=== PATIENT | male | born 1965 | race Hispanic/Latino ===

== ENCOUNTER 2016-09-21 16:25 | Emergency (ER) | payer OTHER ==
[2016-09-21 17:51] LABS: Basophils % (Auto) 0.7 % (0.0-1.8); Eosinophils % (Auto) 1.1 % (0.0-4.3); Hematocrit 40.2 % (35.5-45.6); Hemoglobin 13.4 gm/dl (11.8-15.2); Mean Corpuscular HGB Conc 33 % (32-34); Mean Corpuscular Hemoglobin 30 pg (28-32); Mean Corpuscular Volume 89 fl (84-94); Platelet Count 179 K/mm3 (140-440); Red Blood Count 4.51 M/mm3 (3.65-5.03); Red Cell Distribution Width 13.3 % (13.2-15.2)
--- NOTE | 2016-09-21 18:00 | Cat Scan Report ---
FINAL REPORT EXAM: CT CERVICAL SPINE WO CON HISTORY: hanging TECHNIQUE: Noncontrast serial axial images through the cervical spine with coronal and sagittal reconstruction. PRIORS: None. FINDINGS: No gross abnormality is seen in the visualized portion of the brain. Mastoid air cells are well aerated. Prevertebral soft tissues appear within normal limits. Visualized portion of the lung apices are clear. No acute fracture or anterolisthesis is identified. Degenerative changes are noted at multiple levels. Subtle lucent foci are seen in the C4 and C5 vertebral bodies. IMPRESSION: 1. No acute fracture or anterolisthesis is identified. 2. Multilevel degenerative change is noted. 3. Subtle lucent foci are seen in the C4 and C5 vertebral bodies. This is a nonspecific finding. The possibility of metastatic disease or myeloma is not excluded in this age group. There are currently no studies available for direct comparison.
[2016-09-21 18:06] LABS: Anion Gap 18 mmol/L; BUN/Creatinine Ratio 22.85; Blood Urea Nitrogen 16 mg/dL (9-20); Calcium 8.9 mg/dL (8.4-10.2); Carbon Dioxide 24 mmol/L (22-30); Chloride 101.3 mmol/L (98-107); Glucose 124 mg/dL (75-100); Potassium 4.4 mmol/L (3.6-5.0); Sodium 139 mmol/L (137-145)
[2016-09-21 19:27] VITALS: BP 108/69
[2016-09-21 19:30] LABS: Urine Drugs of Abuse Note Disclamer
--- NOTE | 2016-09-21 19:41 | Emergency Department Report ---
ED General Adult HPI - General Chief complaint: Psych Stated complaint: SUICIDE ATTEMPT Time Seen by Provider: 09/21/16 16:55 Source: patient, EMS Mode of arrival: Stretcher Limitations: No Limitations - History of Present Illness Initial comments: The patient was brought to this facility in cervical mobilization after an attempted pain. The patient tells me that he tied a knot in a sheet and put it around his neck and attempted to jump off a second floor. He states he did not lose consciousness and he was not "dangling". Remarkably he doesn't complain of any significant neck pain at all. Chief complaint on arrival is that he is hungry. He states that he is compliant with his psychiatric medication. He has a history of schizophrenia. He states that he tried to kill himself. He denies any weakness or numbness in his extremities. This patient is a federal prisoner of 3-4 months he tells me. The longterm has sent him for medical clearance. The officers confirm for me that they have ample resources to place this patient on suicide watch as well as psychiatric care in the longterm. He is basically here for cervical spine x-rays. -: Sudden, minutes(s) Location: neck (min) Radiation: non-radiation (minimal) Severity scale (0 -10): 0 Quality: aching Consistency: intermittent Improves with: none Worsens with: none Associated Symptoms: denies other symptoms, other (other than psychiatric) - Related Data Home Medications Medication Instructions Recorded Confirmed Last Taken No Known Home Medications [No 08/20/15 08/25/15 Unknown Reported Home Medications] Allergies Allergy/AdvReac Type Severity Reaction Status Date / Time No Known Allergies Allergy Unverified 08/17/15 20:59 ED Review of Systems ROS: Stated complaint: SUICIDE ATTEMPT Other details as noted in HPI Constitutional: denies: chills, fever Eyes: denies: eye pain, eye discharge, vision change ENT: denies: ear pain, throat pain Respiratory: denies: cough, shortness of breath, wheezing Cardiovascular: denies: chest pain, palpitations Endocrine: no symptoms reported Gastrointestinal: denies: abdominal pain, nausea, diarrhea Genitourinary: denies: urgency, dysuria Musculoskeletal: denies: back pain, joint swelling, arthralgia Skin: denies: rash, lesions Neurological: denies: headache, weakness, paresthesias Psychiatric: depression, suicidal thoughts. denies: anxiety Hematological/Lymphatic: denies: easy bleeding, easy bruising ED Past Medical Hx - Past Medical History Hx Psychiatric Treatment: Yes (SCHIZOPHRENIA, BIPLOAR, DEPRESSION) - Surgical History Past Surgical History?: No - Social History Smoking Status: Unknown if ever smoked - Medications Home Medications: Home Medications Medication Instructions Recorded Confirmed Last Taken Type No Known Home Medications [No 08/20/15 08/25/15 Unknown History Reported Home Medications] ED Physical Exam - General Limitations: No Limitations General appearance: alert, in no apparent distress - Head Head exam: Present: atraumatic, normocephalic - Eye Eye exam: Present: normal appearance, PERRL, EOMI. Absent: scleral icterus - ENT ENT exam: Present: normal exam, mucous membranes moist - Neck Neck exam: Present: normal inspection. Absent: tenderness - Respiratory Respiratory exam: Present: normal lung sounds bilaterally. Absent: respiratory distress - Cardiovascular Cardiovascular Exam: Present: regular rate, normal rhythm. Absent: systolic murmur, diastolic murmur, rubs, gallop - GI/Abdominal GI/Abdominal exam: Present: soft, normal bowel sounds. Absent: distended, tenderness, guarding, rebound, rigid - Rectal Rectal exam: Present: deferred - Extremities Exam Extremities exam: Present: normal inspection - Back Exam Back exam: Present: normal inspection - Neurological Exam Neurological exam: Present: alert, oriented X3, CN II-XII intact, reflexes normal. Absent: motor sensory deficit - Psychiatric Psychiatric exam: Present: flat affect, other (somewhat bizarre and inappropriate but officers state "we know him and this is normal".) - Skin Skin exam: Present: warm, dry, intact, normal color. Absent: rash ED Course Vital Signs 09/21/16 09/21/16 09/21/16 16:42 16:50 16:55 Temperature 97.7 F Pulse Rate 61 Respiratory 14 14 Rate Blood Pressure 100/63 Blood Pressure 100/63 [Right] O2 Sat by Pulse 100 100 100 Oximetry 09/21/16 09/21/16 09/21/16 17:00 17:11 17:21 Temperature Pulse Rate 62 64 57 L Respiratory 20 14 15 Rate Blood Pressure 108/76 108/76 108/76 Blood Pressure [Right] O2 Sat by Pulse 91 99 99 Oximetry 09/21/16 19:15 Temperature Pulse Rate Respiratory Rate Blood Pressure 108/69 Blood Pressure [Right] O2 Sat by Pulse 91 Oximetry - Reevaluation(s) Reevaluation #1: On reexamination the patient is neurologically intact. His C-spine CT did not show any traumatic injury. He does have some incidental lucencies which will be referred to the longterm for further evaluation as appropriate. He is given Geodon and Ativan. He is discharged to longterm medical services on suicide watch. 09/21/16 19:42 ED Medical Decision Making - Lab Data Result diagrams: 09/21/16 17:27 09/21/16 17:27 Laboratory Results - last 24 hr 09/21/16 02 17:27 17:27 WBC 8.0 RBC 4.51 Hgb 13.4 Hct 40.2 MCV 89 MCH 30 MCHC 33 RDW 13.3 Plt Count 179 Lymph % (Auto) 14.8 [place] % (Auto) 5.5 Eos % (Auto) 1.1 Baso % (Auto) 0.7 Lymph # 1.2 [place] # 0.4 Eos # 0.1 Baso # 0.1 Seg Neutrophils % 77.9 H Seg Neutrophils # 6.2 Sodium 139 Potassium 4.4 Chloride 101.3 Carbon Dioxide 24 Anion Gap 18 BUN 16 Creatinine 0.7 L Estimated GFR > 60 BUN/Creatinine Ratio 22.85 Glucose 124 H Calcium 8.9 Critical care attestation.: If time is entered above; I have spent that time in minutes in the direct care of this critically ill patient, excluding procedure time. ED Disposition Clinical Impression: Cervical strain Qualifiers: Encounter type: initial encounter Qualified Code(s): S16.1XXA - Strain of muscle, fascia and tendon at neck level, initial encounter Suicide gesture Qualifiers: Encounter type: initial encounter Qualified Code(s): X83.8XXA - Intentional self-harm by other specified means, initial encounter Schizophrenia Qualifiers: Schizophrenia type: unspecified Qualified Code(s): F20.9 - Schizophrenia, unspecified Disposition: DISCHARGED TO HOME OR SELFCARE Is pt being admited?: No Does the pt Need Aspirin: No Condition: Stable Additional Instructions: The patient will need psychiatric care and suicidal watch. He did have some incidental lucencies on his cervical spine CT but no injury per the radiologist. See report. Return any neurological change or complaint of weakness or numbness in the extremities. Even in the presence of a normal cervical spine x-ray a patient with arthritic changes may develop late signs of injury to the spine. In this case an MRI would be needed. Referrals: PRIMARY CARE, [Primary Care Provider] - 3-5 Days Time of Disposition: 19:44
[2016-09-21] MEDS: GEODON PO ONE (19:45)
[2016-09-21] MEDS: ATIVAN PO ONE (19:45)
[2016-09-21 19:53] LABS: Bilirubin,Urine NEG (Negative); Blood,Urine NEG (Negative); Ketones,Urine NEG (Negative); Leukocyte Esterase,Urine NEG (Negative); Mucus,Urine FEW /HPF; Nitrite,Urine NEG (Negative); Protein,Urine <15 mg/dL mg/dL (Negative); Urobilinogen,Urine < 2.0 mg/dL (<2.0)
== END 2016-09-21 19:59 | disposition home or self-care (01) ==
LOC: EEVIPCON 16:25 → ED 16:25
DX: T14.91 Suicide attempt (principal); S16.1XXA Strain of muscle, fascia and tendon at neck level, initial encounter; F20.9 Schizophrenia, unspecified; F31.9 Bipolar disorder, unspecified; X83.8XXA Intentional self-harm by other specified means, initial encounter; Y93.9 Activity, unspecified; Y92.89 Other specified places as the place of occurrence of the external cause; Y99.9 Unspecified external cause status
CPT/HCPCS: 36415; 72125; 80048; 80307; 81001; 85025; 99284

== ENCOUNTER 2017-03-20 14:24 | Emergency (ER) | payer SELFPAY | END 2017-03-20 16:15 | disposition left against medical advice (07) | LOC: ED 14:24 | DX: R10.9 Unspecified abdominal pain (principal); Z53.21 Procedure and treatment not carried out due to patient leaving prior to being seen by health care provider ==

== ENCOUNTER 2017-03-20 22:17 | Emergency (ER) | payer OTHER ==
[2017-03-20 23:33] VITALS: BP 125/90
[2017-03-21 00:02] LABS: Basophils % (Auto) 0.6 % (0.0-1.8); Eosinophils % (Auto) 2.1 % (0.0-4.3); Hematocrit 42.3 % (35.5-45.6); Hemoglobin 14.3 gm/dl (11.8-15.2); Mean Corpuscular HGB Conc 34 % (32-34); Mean Corpuscular Hemoglobin 28 pg (28-32); Mean Corpuscular Volume 83 fl (84-94); Platelet Count 291 K/mm3 (140-440); Red Cell Distribution Width 14.7 % (13.2-15.2); White Blood Count 10.6 K/mm3 (4.5-11.0)
[2017-03-21 00:15] LABS: Anion Gap 19 mmol/L; Blood Urea Nitrogen 7 mg/dL (9-20); Calcium 9.7 mg/dL (8.4-10.2); Carbon Dioxide 24 mmol/L (22-30); Chloride 99.2 mmol/L (98-107); Glucose 89 mg/dL (75-100); Potassium 4.5 mmol/L (3.6-5.0); Sodium 138 mmol/L (137-145)
== END 2017-03-21 04:30 | disposition left against medical advice (07) ==
LOC: ED 22:17
DX: M79.673 Pain in unspecified foot (principal); Z53.21 Procedure and treatment not carried out due to patient leaving prior to being seen by health care provider
CPT/HCPCS: 36415; 80048; 85025; G0480; 80320